=== PATIENT | female | born 1970 | race Caucasian/White ===

== ENCOUNTER → 2019-08-31 | Outpatient (CLI) | payer OTHER | LOC: COL.RAD 08:54 | DX: S73.102A Unspecified sprain of left hip, initial encounter (principal) | CPT/HCPCS: A9585; J3301; Q9967 ==

== ENCOUNTER → 2019-10-10 | Outpatient (CLI) | payer OTHER | LOC: MHCPAIN 13:30 | DX: M47.812 Spondylosis without myelopathy or radiculopathy, cervical region (principal); M54.2 Cervicalgia; R51 Headache; G89.29 Other chronic pain | CPT/HCPCS: G0463 ==

== ENCOUNTER → 2019-10-16 | Outpatient (CLI) | payer OTHER | LOC: MHCPAIN 08:08 | DX: M79.18 Myalgia, other site (principal); M54.16 Radiculopathy, lumbar region; M54.5 Low back pain | CPT/HCPCS: J1040 ==